=== PATIENT | male | born 1990 ===

== ENCOUNTER 2018-08-31 22:26 | Emergency (ER) | payer OTHER ==
[~2018-08-31] VITALS: Ht 190.5 cm; Wt 84.6 kg
[2018-08-31 22:37] VITALS: BP 120/80
== END 2018-08-31 23:04 | disposition home or self-care (01) ==
LOC: ER 22:27
DX: R07.89 Other chest pain (principal); Z59.0 Homelessness
CPT/HCPCS: 99281